=== PATIENT | female | born 1995 | race Caucasian/White ===

== ENCOUNTER 2017-01-24 10:45 | Emergency (ER) | payer MEDICAID, OTHER ==
[~2017-01-24] VITALS: Ht 165.1 cm; Wt 63.7 kg
[2017-01-24 13:24] VITALS: BP 123/81
== END 2017-01-24 13:26 | disposition home or self-care (01) ==
LOC: ED 12:47
DX: K64.8 Other hemorrhoids (principal)
CPT/HCPCS: 99283

== ENCOUNTER 2017-01-28 18:20 | Emergency (ER) | payer MEDICAID ==
[~2017-01-28] VITALS: Ht 165.1 cm; Wt 63.8 kg
[2017-01-28] MEDS ORDERED: SODIUM CHLORIDE 0.9% 1,000 ML IV ONE (20:00)
[2017-01-28] MEDS ORDERED: ONDANSETRON 2MG/ML, 2ML IVPush ONE (20:00)
[2017-01-28] MEDS ORDERED: SODIUM CHLORIDE FLUSH 10ML SYR IVF ONE (20:00)
[2017-01-28] MEDS ORDERED: ONDANSETRON 2MG/ML, 2ML ONE (20:26)
[2017-01-28] MEDS ORDERED: MORPHINE SULFATE 4 MG/ML, 1ML ONE ×2 (20:26→22:08)
[2017-01-28] MEDS: MORPHINE SULFATE 4 MG/ML, 1ML IVPush PRN ×2 (20:28→22:10)
[2017-01-28 20:40] LABS: BLOOD UREA NITROGEN 6 mg/dL (7-18)
[2017-01-28 21:33] VITALS: BP 127/73
[2017-01-28] MEDS ORDERED: MORPHINE SULFATE 4 MG/ML, 1ML IVPush ONE (22:30)
== END 2017-01-28 22:34 | disposition home or self-care (01) ==
LOC: ED 22:15
DX: O26.891 Other specified pregnancy related conditions, first trimester (principal); Z3A.01 Less than 8 weeks gestation of pregnancy; K62.5 Hemorrhage of anus and rectum; K59.00 Constipation, unspecified
CPT/HCPCS: 36415; 76801; 80048; 82040; 84702; 84703; 85025; 96361; 96374; 96375; 96376; 99285; J2405; J7030